=== PATIENT | female | born 1980 | race Caucasian/White ===

== ENCOUNTER 2019-07-02 17:51 | Emergency (ER) | payer SELFPAY ==
[2019-07-02 18:24] VITALS: BP 128/59; PULSE 60; RESP 18; TEMP 36.6; O2SAT 99; BMI 26.3
--- NOTE | 2019-07-02 18:33 | ED_ITS ---
HPI - Dental/Oral General: Chief complaint: Dental/Oral Stated complaint: toothache Time Seen by Provider: 07/02/19 18:33 History of Present Illness: HPI Narrative: Patient is a 38-year-old female who comes into the ED with dental pain. Patient states she had a tooth broken off and is in the left upper maxillary jaw. She's been having pain for the past 2 weeks from this tooth. The last couple days it is Worse. She feels the pain on the left side of her face now. She is new to [facility] and she's calling around looking for a dentist. Associated symptoms: Denies fever(s) or painful swallowing Review of Systems Const: Denies: fever, chills or fatigue Eyes: Denies: change in vision or eye discomfort ENMT: Reports: dental pain (Left upper back molar) and facial/sinus pain (facial pain on left cheek due to tooth); Denies: throat pain, painful swallowing, nasal discharge or nasal congestion Card: Denies: chest pain, palpitations, edema, swelling of feet/ankles, shortness of breath on exertion or shortness of breath when lying down Resp: Denies: shortness of breath, productive cough or non-productive cough GI: Denies: abdominal pain, nausea, vomiting, diarrhea, constipation or blood in stool : Denies: flank pain, painful urination or blood in urine Musc: Denies: neck pain, back pain or extremity swelling Skin/Breast: Denies: rash or new lesion Neuro: Denies: headache, numbness in extremities or weakness in extremities COUNT INCLUDES THE [facility] ED PFSH: Social History Smoking and tobacco status: former smoker Physical Exam Const: COMMON NORMALS: oriented x3 HENMT: COMMON NORMALS: normocephalic HEAD & SCALP: normocephalic MOUTH: oral and palatal mucosa normal TEETH & GINGIVA: Yes caries, Yes poor dentition and Yes other (Broken #16 tooth. There is some gum swelling around broken tooth.) THROAT: posterior oropharynx normal and uvula midline Neck/C-Spine: COMMON NORMALS: supple GENERAL: Yes normal visual inspection Resp: COMMON NORMALS: normal respiratory effort, no retractions, no use of accessory muscles and clear to auscultation bilaterally AUSCULTATION: clear to auscultation bilaterally Cardio: COMMON NORMALS: regular rate, regular rhythm, S1 normal heart sound, S2 normal heart sound, no gallops, no clicks, no murmurs and peripheral pulses 2+ throughout RATE: regular rate RHYTHM: regular rhythm HEART SOUNDS: S1 normal and S2 normal PERIPHERAL PULSES: pulses 2+ throughout GI: COMMON NORMALS: normal to inspection, nondistended, normoactive bowel sounds, soft to palpation, non-tender and no masses PALPATION: Yes soft : COMMON NORMALS: Yes no CVA tenderness BLADDER/KIDNEY EXAM: Yes no CVA tenderness Back/Pelvis: COMMON NORMALS: no CVA tenderness Extremity: COMMON NORMALS: normal to inspection Neuro: COMMON NORMALS: oriented x3 and moves all extremities Course Vital Signs: Vital signs: Vital Signs Temperature 97.8 F 07/02/19 19:14 Pulse Rate 76 07/02/19 19:14 Respiratory Rate 16 07/02/19 19:14 Blood Pressure 122/76 07/02/19 19:14 Pulse Oximetry 100 07/02/19 19:14 Discharge Plan Discharge Patient Disposition: Home, Self-Care Clinical Impression: Toothache, Dental caries Condition: Stable Prescriptions: New clindamycin HCl 150 mg capsule 300 mg PO Q6H 10 Days Qty: 80 RF: 0 No Action Celexa 20 mg Tablet 20 mg PO DAILY RF: 0 lisinopril 40 mg Tablet 40 mg PO DAILY RF: 0 Discharge Orders: Discharge Order (Routine); Ordered 07/02/19 Ordered By: Preston Green Discharge Diet: Regular Discharge Activity: Resume usual activity Patient Instructions: Dental Caries (ED), Toothache (ED) Activity Restrictions/Additional Instructions: Follow-up with the dentist in the next 7 days to be evaluated. I'm sending you home with hydrocodone tab, you can take this med to help with pain. He can also take either Tylenol or ibuprofen to help with pain. Take full course of antibiotics as prescribed. Discharge Date/Time: 07/02/19 19:34 Coding Level of Care Code ED Show Host/Hostess for Mikayla Fwd Exam Comprehensive
[2019-07-02 18:36] VITALS: BP 119/68; PULSE 74; RESP 16; TEMP 36.6; O2SAT 100
[2019-07-02 19:14] VITALS: BP 122/76; PULSE 76; RESP 16; TEMP 36.6; O2SAT 100
--- NOTE | 2019-07-02 19:33 | PC.NURSE ---
READ AND AGREE WITH ASSESSMENT
== END 2019-07-02 19:34 | disposition home or self-care (01) ==
PROVIDERS: Emergency Provider Physician Assistant
DX: S02.5XXA Fracture of tooth (traumatic), initial encounter for closed fracture (principal); K02.9 Dental caries, unspecified; Z87.891 Personal history of nicotine dependence; X58.XXXA Exposure to other specified factors, initial encounter
CPT/HCPCS: 99281